=== PATIENT | female | born 1985 | race African-American/Black ===

== ENCOUNTER 2017-10-21 01:17 | Emergency (ER) | payer OTHER ==
[2017-10-21 01:33] VITALS: BP 109/71; PULSE 82; TEMP 97.9; BMI 26.9
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
== END 2017-10-21 05:41 | disposition home or self-care (01) ==
LOC: JER 01:17
DX: S16.1XXA Strain of muscle, fascia and tendon at neck level, initial encounter (principal); S39.012A Strain of muscle, fascia and tendon of lower back, initial encounter; V53.5XXA Driver of pick-up truck or van injured in collision with car, pick-up truck or van in traffic accident, initial encounter; Y92.488 Other paved roadways as the place of occurrence of the external cause; Y93.89 Activity, other specified; Y99.8 Other external cause status
CPT/HCPCS: 72050-TC; 72100-TC; 84703; 99283-25